=== PATIENT | female | born 1995 | race Caucasian/White ===

== ENCOUNTER → 2024-08-29 14:07 | Outpatient (CLI) | payer BC, SELFPAY ==
[2024-08-29 14:45] LABS: Appearance Urine UA CLEAR; Bilirubin Urine UA NEGATIVE (NEGATIVE); Color Urine UA YELLOW; Glucose Urine UA NEGATIVE (Negative); Ketones Urine UA NEGATIVE (NEGATIVE); Leukocyte Esterase Urine UA NEGATIVE (NEGATIVE); Nitrite Urine UA NEGATIVE (Negative); Occult Blood Urine UA NEGATIVE (Negative); Protein Urine UA NEGATIVE (Negative); Specific Gravity Urine UA <=1.005 (1.000-1.035); Urobilinogen Urine UA 0.2 E.U./dL (0.2)
[2024-08-29 15:44] LABS: Add Manual Diff / Slide Review NO; Basophils Absolute Auto 0 /uL (0-100); Basophils Percent Auto 0.4 % (0-2); Eosinophils Absolute Auto 100 /uL (0-450); Eosinophils Percent Auto 0.8 % (2-4); Hematocrit 37.5 % (36-46); Lymphocytes Absolute Auto 2100 /uL (1100-4500); Lymphocytes Percent Auto 24.9 % (25-40); Mean Corpuscular HGB Conc 34.6 % (30-36); Mean Corpuscular Hemoglobin 30.7 PG (26-34); Mean Corpuscular Volume 88.9 fL (80-100); Monocytes Absolute Auto 600 /uL (0-900); Monocytes Percent Auto 6.5 % (3-14); Neutrophils Absolute Auto 5800 /uL (1500-7000); Neutrophils Percent Auto 67.4 % (50-75); Platelet Count 327 X10^3/uL (150-400); Red Blood Cell Count 4.22 X10^6/uL (4.0-5.2); Red Cell Distribution Width 13.4 % (11.6-14.8); White Blood Cell Count 8.6 X10^3/uL (4.5-11.0)
[2024-08-29 16:01] LABS: Alanine Aminotransferase 19 IU/L (<35); Aspartate Aminotransferase 31 IU/L (14-36); BUN Creatinine Ratio 15.9 (6-22); Blood Urea Nitrogen 10 mg/dL (7-17); Estimated Glomerular Filt Rate > 60 mL/min (>60); Uric Acid 2.5 mg/dL (2.5-6.2)
[2024-08-30 18:10] LABS: Natera Collection Specimen Collected
[2024-08-31 04:36] LABS: RPR Screen Non Reactive (Non Reactive)
[2024-08-31 08:36] LABS: Varicella IgG Antibody Reactive (Non Reactive)
[2024-08-31 15:28] LABS: Hepatitis B Surface Antigen NEGATIVE s/c (NEGATIVE)
[2024-08-31 15:47] LABS: HIV 1 & 2 Ab/Ag 4th Gen Combo NEGATIVE (NEGATIVE); Hep C Virus Ab w/Reflex Quant NEGATIVE s/c (NEGATIVE)
== END ==
LOC: LAB 14:09
PROVIDERS: Referring Provider Family Medicine; Visit Provider Family Medicine
DX: Z34.80 Encounter for supervision of other normal pregnancy, unspecified trimester (principal)
CPT/HCPCS: 36415; 80055; 81003; 82565; 84450; 84460; 84520; 84550; 86787; 86803; 86850; 86900; 86901; 87086; 87389

== ENCOUNTER → 2024-10-17 10:00 | Outpatient (CLI) | payer BC, SELFPAY ==
--- NOTE | 2024-10-17 10:00 | DI.US.S_ITS ---
PROCEDURE: US OB >= 14 WEEKS FETUS INDICATIONS: Anatomy Scan Complete OUTSIDE/PRIOR DATING DATA: Last menstrual period (LMP): May 30, 2024. LMP-based estimated date of delivery (RAMIREZ): March 06, 2025. TECHNIQUE: Real-time scanning was performed of the fetus, with image documentation and biometric measurements. Endovaginal scanning: Not performed COMPARISON: None. FINDINGS: General: A single living intrauterine gestation is present. Presentation: Variable. Placenta: Placental position is posterior , without previa. Amniotic fluid index: 7.4 cm, normal range is 5-24 cm. Single deepest vertical pocket is 2.2 cm. heart rate: 132 beats per minute. Maternal cervical canal: 5.1 cm long. Normal lower limit is 2.5 cm. biometrics: Biparietal diameter: 4.3 cm, 19 weeks and 1 day Head circumference: 16.8 cm, 19 weeks and 3 days Abdominal circumference: 12.8 cm, 18 weeks and 2 days Femur length: 2.9 cm, 18 weeks and 5 days Clinically estimated gestational age: 20 weeks and 0 days Composite gestational age from present scan: 18 weeks and 6 days Estimated weight and percentile: 250 g which correlates with the 3rd percentile based on estimated gestational age. Anatomic survey: Neuro: Ventricles are non-dilated at less than 10 mm. Cisterna magna is normal at 3-11 mm. Cerebellum is normal in size and morphology. Nuchal skin fold: Normal at less than 6 mm between 14-21 weeks gestational age. Face: Nose and lips, facial profile are normal. Spine: No evidence for spina bifida. Heart: 4-chambered heart is present, with normal ventricular outflow tracts. Diaphragm: Diaphragm is intact. Stomach: Left-sided stomach is present. Kidneys: No hydronephrosis. Normal is less than 5 mm in 2nd trimester, less than 7 mm in 3rd trimester. Cord: 3-vessel cord has orthotopic insertion. Bladder: Normal in size. Extremities: All 4 extremities identified. IMPRESSION: Single living intrauterine gestation with estimated sonographic gestational age of approximately 18 weeks and 6 days versus approximately 20 weeks and 0 days by last menstrual period. Estimated weight of approximately 250 g which correlates with the 3rd percentile. Otherwise, unremarkable routine anatomy screening survey. We strive to produce accurate, complete, and clear reports of imaging services. To assist us in improving patient care, this report was composed using standard report templates and voice recognition software. Therefore, it may contain abnormal punctuation, insertions and/or omissions. Occasional wrong-word or sound-alike substitutions may occur. Though we review the report and make efforts to correct it, we do recommend that the report be read carefully in proper context to recognize any text inaccuracies. Dictated by: Jimenez Linn M.D. on 10/18/2024 at 13:52 Approved by: Jimenez Linn M.D. on 10/18/2024 at 13:56
== END ==
PROVIDERS: PCP Family Medicine; Referring Provider Family Medicine; Visit Provider Family Medicine
DX: Z34.92 Encounter for supervision of normal pregnancy, unspecified, second trimester (principal); Z3A.18 18 weeks gestation of pregnancy
CPT/HCPCS: 76811

== ENCOUNTER → 2024-11-23 10:38 | Outpatient (CLI) | payer BC, SELFPAY ==
[2024-11-23 12:21] LABS: Hematocrit 32.3 % (36-46); Hemoglobin 11.4 g/dL (12.0-16.0)
[2024-11-23 12:41] LABS: GTT (PREG) 1 Hour PP 50gm Dose 139 mg/dL (76-139)
[2024-11-23 14:36] LABS: Creatinine Urine Random 36.15 mg/dL; Protein (Total) Urine Random 13 mg/dL (0-12); Protein Creatinine Ratio Urine 0.35 GRAM/24H
[2024-11-23 15:23] LABS: Urine N gonorrhoeae NOT DETECTED
[2024-11-23 15:28] LABS: Urine Chlamydia NOT DETECTED
== END ==
PROVIDERS: PCP Family Medicine; Referring Provider Family Medicine; Visit Provider Family Medicine
DX: Z34.80 Encounter for supervision of other normal pregnancy, unspecified trimester (principal); Z87.59 Personal history of other complications of pregnancy, childbirth and the puerperium
CPT/HCPCS: 36415; 82570; 82950; 84156; 85014; 85018; 87491; 87591

== ENCOUNTER → 2024-12-27 10:54 | Outpatient (CLI) | payer BC, SELFPAY ==
--- NOTE | 2024-12-27 10:55 | DI.US.S_ITS ---
PROCEDURE: US OB LIMITED INDICATIONS: SMALL FOR GESTATIONAL AGE OUTSIDE/PRIOR DATING DATA: Last menstrual period (LMP): 05/30/2024. LMP-based estimated date of delivery (RAMIREZ): 03/06/2025. First dating scan (date and location): 08/01/2024. Estimated date of delivery (RAMIREZ) from first dating scan: 03/13/2025. The calculations are made using the clinical RAMIREZ of 03/06/2025. TECHNIQUE: Real-time scanning was performed of the fetus, with image documentation and biometric measurements. Endovaginal scanning: Not performed COMPARISON: [facility], OB >= 14 WEEKS FETUS, 10/17/2024, 10:26. FINDINGS: General: A single living intrauterine gestation is present. Presentation: Transverse. Placenta: Placental position is posterior , without previa. Amniotic fluid index: 12.4 cm, normal range is 5-24 cm. Single deepest vertical pocket is 4.8 cm. heart rate: 145 beats per minute. Maternal cervical canal: 5.3 cm long. Normal lower limit is 2.5 cm. biometrics: Biparietal diameter: 7.1 cm, 28 weeks 3 days Head circumference: 27.0 cm, 29 weeks 3 days Abdominal circumference: 24.2 cm, 28 weeks 3 days Femur length: 5.5 cm, 29 weeks 0 days Clinically estimated gestational age: 30 weeks 1 day Composite gestational age from present scan: 28 weeks 6 days Estimated weight and percentile: 1269 g, 6 percentile Other: Normal umbilical artery SD ratio is of 2.3, 2.1 and 2.9 IMPRESSION: 1. Single live intrauterine consistent with 28 weeks and 6 days. Estimated weight is in the 6th percentile. 2. Normal cord Dopplers. We strive to produce accurate, complete, and clear reports of imaging services. To assist us in improving patient care, this report was composed using standard report templates and voice recognition software. Therefore, it may contain abnormal punctuation, insertions and/or omissions. Occasional wrong-word or sound-alike substitutions may occur. Though we review the report and make efforts to correct it, we do recommend that the report be read carefully in proper context to recognize any text inaccuracies. Dictated by: Kiet Martin M.D. on 12/27/2024 at 15:10 Approved by: Kiet Martin M.D. on 12/27/2024 at 15:14
== END ==
LOC: US 10:55
PROVIDERS: PCP Family Medicine; Referring Provider Family Medicine; Visit Provider Family Medicine
DX: O36.5930 Maternal care for other known or suspected poor fetal growth, third trimester, not applicable or unspecified (principal); Z3A.30 30 weeks gestation of pregnancy
CPT/HCPCS: 76815

== ENCOUNTER → 2025-01-25 08:16 | Outpatient (CLI) | payer BC, SELFPAY ==
--- NOTE | 2025-01-25 08:17 | DI.US.S_ITS ---
PROCEDURE: US OB FOLLOW UP INDICATIONS: Small for gestational age, EFW was 6% on most recent OB ultrasound 12/27/24. OUTSIDE/PRIOR DATING DATA: Last menstrual period (LMP): 05/30/24. LMP-based estimated date of delivery (RAMIREZ): 03/06/25 First dating scan (date and location): 10/17/24, [facility]. Estimated date of delivery (RAMIREZ) from first dating scan: 03/13/25. TECHNIQUE: Real-time scanning was performed of the fetus, with image documentation and biometric measurements. Endovaginal scanning: Not needed COMPARISON: [facility], OB LIMITED, 12/27/2024, 11:03. [facility], OB >= 14 WEEKS FETUS, 10/17/2024, 10:26. FINDINGS: General: A single living intrauterine gestation is present. Presentation: Vertex. Placenta: Placental position is posterior , without previa. Amniotic fluid index: 10.2 cm, normal range is 5-24 cm. Single deepest vertical pocket is 4.1 cm. heart rate: 136 beats per minute. Maternal cervical canal: 3.3 cm long. Normal lower limit is 2.5 cm. biometrics: Biparietal diameter: 8.0 cm, 32 weeks 2 days Head circumference: 30.2 cm, 33 weeks 4 days Abdominal circumference: 27.6 cm, 31 weeks 4 days Femur length: 6.2 cm, 32 weeks 0 days Clinically estimated gestational age: 34 weeks 2 days from LMP. Composite gestational age from present scan: 32 weeks 3 days. Estimated weight and percentile: 1875 g, lower 3rd percentile. Other: Umbilical artery systolic/diastolic ratios are normal. IMPRESSION: The estimated weight has further diminished now measuring at the lower 3rd percentile from the lower 6th percentile 12/27/24. Microsomia. Dictated by: Saran Seo M.D. on 01/25/2025 at 9:51 Approved by: Saran Seo M.D. on 01/25/2025 at 10:09
== END ==
LOC: US 08:16
PROVIDERS: PCP Family Medicine; Referring Provider Family Medicine; Visit Provider Family Medicine
DX: O36.5930 Maternal care for other known or suspected poor fetal growth, third trimester, not applicable or unspecified (principal); Z3A.34 34 weeks gestation of pregnancy
CPT/HCPCS: 76816